=== PATIENT | female | born 1980 | race African-American/Black ===

== ENCOUNTER 2016-10-14 12:53 | Emergency (ER) | payer OTHER ==
[2016-10-14 13:14] VITALS: BP 128/83; PULSE 63; TEMP 97.7; BMI 29.7
--- NOTE | 2016-10-14 14:15 | PDOC ---
History of Present Illness - General Chief Complaint: Vaginal Bleeding Stated Complaint: VAGINAL BLEEDING, 5 WKS Time Seen by Provider: 10/14/16 13:21 - History of Present Illness Initial Comments: 10/14/16 14:14 CHIEF COMPLAINT: vag bldg HISTORY OF PRESENT ILLNESS: 36 yo 5 wk preg F with hx of cervical cancer s /p LEEP, tummy tuck, liposuction, and cerclage x2 presents to ED with intermittent cramping pain and vaginal bleeding "with clots" since yesterday. Patient states "I am miscarrying, this has happened before and it feels the same." Her OB is [facility]. No recent travel or sick contacts. PAST MEDICAL HISTORY: as per HPI FAMILY HISTORY: Denies SOCIAL HISTORY: Denies tobacco, alcohol, illicit drug use. SURGICAL HISTORY: Denies ALLERGIES: No known drug allergies REVIEW OF SYSTEMS General/Constitutional: Denies fever or chills. Denies weakness. HEENT: Denies change in vision. Denies ear pain or discharge. Denies sore throat. Cardiovascular: Denies chest pain or shortness of breath. Respiratory: Denies cough, wheezing, or hemoptysis. Gastrointestinal: Abdominal cramping "feels like contractions." Denies nausea, vomiting, diarrhea or constipation. Denies rectal bleeding. Genitourinary: Vaginal bleeding "with clots." D enies dysuria, frequency, or change in urination. Musculoskeletal: Denies joint or muscle swelling or pain. Denies neck or back pain. Skin and breasts: Denies rash or easy bruising. PHYSICAL EXAM General Appearance: Well-appearing, appropriately dressed. No apparent distress. HEENT: EOMI, PERRLA. No conjunctival pallor. No photophobia, scleral icterus. Respiratory/Chest: Lungs CTAB. Cardiovascular: RRR. S1, S2. Gastrointestinal/Abdominal: Normal bowel sounds. Abdomen soft, non-distended. No tenderness or rebound tenderness. No organomegaly, pulsatile mass, guarding , hernia, hepatomegaly, splenomegaly. Musculoskeletal/Extremities: Normal inspection. FROM of all extremities, normal capillary refill. No tenderness to extremities, pedal edema, swelling, erythema or deformity. Integumentary: Appropriate color, dry, warm. No cyanosis, erythema, jaundice or rash Neurologic: superintendent meters II-XII intact. Fully oriented, alert. Appropriate mood/affect. Motor strength 5/5. No appreciable EOM palsy, facial droop or sensory deficit. 10/14/16 14:53 Past History - Past Medical History Allergies/Adverse Reactions: Allergies Allergy/AdvReac Type Severity Reaction Status Date / Time No Known Allergies Allergy Verified 10/14/16 13:14 Home Medications: Ambulatory Orders NK [No Known Home Medication] 11/25/15 Thyroid Disease: No - Psycho/Social/Smoking Cessation Hx Anxiety: No Suicidal Ideation: No Smoking History: Never smoked Have you smoked in the past 12 months: No Information on smoking cessation initiated: No Hx Alcohol Use: No Drug/Substance Use Hx: No Substance Use Type: None *Physical Exam - Vital Signs Last Vital Signs Temp Pulse Resp BP Pulse Ox 97.7 F 63 18 128/83 100 10/14/16 13:10 10/14/16 13:10 10/14/16 13:10 10/14/16 13:10 10/14/16 13:10 ED Treatment Course - LABORATORY CBC & Chemistry Diagram: 10/14/16 14:29 - RADIOLOGY Radiology Studies Ordered: Category Date Time Status TRANSVAGINAL US PREG [US] Stat Ultrasound 10/14/16 14:08 Ordered Medical Decision Making - Medical Decision Making 10/14/16 14:57 36 yo 5 wk preg F with hx of cervical cancer s/p LEEP, tummy tuck, liposuction, and cerclage x2 presents to ED with intermittent cramping pain and vaginal bleeding "with clots" since yesterday. -CBC, beta hCG, T&S -TV US 10/14/16 14:57 *DC/Admit/Observation/Transfer Diagnosis at time of Disposition: Spontaneous - Discharge Dispostion Disposition: HOME Condition at time of disposition: Stable Admit: No - Referrals Referrals: Javi Pinto MD [Primary Care Provider] - Maykel Lockhart MD [Staff Physician] - - Patient Instructions Printed Discharge Instructions: DI for Miscarriage Additional Instructions: Please follow up with Dr. Lockhart by the end of this week. If you experience any uncontrollable bleeding (more than one soaked pad an hour), severe pain, uncontrollable vomiting, or any new or concerning symptoms, please return to the ER.
[2016-10-14 14:39] LABS: MCH 31.4 pg (25.7-33.7); MCHC 32.7 g/dl (32.0-36.0); MEAN PLT VOLUME 7.8 fl (7.5-11.1); PLATELET COUNT 191 K/MM3 (134-434); RDW 13.4 % (11.6-15.6); WHITE BLOOD COUNT 7.8 K/mm3 (4.0-10.0)
--- NOTE | 2016-10-14 15:21 | PDOC ---
[id number] 100 10/14/16 13:10 10/14/16 13:10 10/14/16 13:10 10/14/16 13:10 10/14/16 13:10 ED Treatment Course - LABORATORY CBC & Chemistry Diagram: 10/14/16 14:29 - ADDITIONAL ORDERS Additional order review: Laboratory Results 10/14/16 14:29 Beta HCG, Quant 359.8 10/14/16 14:29 RBC 4.22 MCV 96.0 MCHC 32.7 RDW 13.4 MPV 7.8 Medical Decision Making - Medical Decision Making 10/14/16 15:21 Pt seen by the Advanced Practice Provider under my direct supervision Ancillary studies reviewed I agree with plan as outlined by the Advanced Practice Provider LESLY Fong *DC/Admit/Observation/Transfer Diagnosis at time of Disposition: Miscarriage - Discharge Dispostion Disposition: HOME - Referrals Referrals: Maykel Lockhart MD [Staff Physician] - Javi Pinto MD [Primary Care Provider] - - Patient Instructions Printed Discharge Instructions: DI for Miscarriage Additional Instructions: Please follow up with Dr. Lockhart by the end of this week. If you experience any uncontrollable bleeding (more than one soaked pad an hour), severe pain, uncontrollable vomiting, or any new or concerning symptoms, please return to the ER.
== END 2016-10-14 16:27 | disposition home or self-care (01) ==
LOC: JER 12:53
DX: O03.9 Complete or unspecified spontaneous abortion without complication (principal); Z3A.01 Less than 8 weeks gestation of pregnancy
CPT/HCPCS: 36415; 76817-TC; 84702; 85027; 86850; 86900; 86901; 99283-25

== ENCOUNTER 2017-01-21 18:46 | Emergency (ER) | payer OTHER ==
[2017-01-21 18:56] VITALS: BP 124/77; PULSE 63; TEMP 98.2; BMI 30.7
[2017-01-21] MEDS ORDERED: IBUPROFEN 600 MG TABLET (FP) PO ONE (21:38)
--- NOTE | 2017-01-21 21:41 | PDOC ---
History of Present Illness - General Chief Complaint: Injury Stated Complaint: LEFT LEG INJURY Time Seen by Provider: 01/21/17 20:14 History Source: Patient Exam Limitations: No Limitations - History of Present Illness Initial Comments: 01/21/17 21:37 CC PAIN TO LEFT FOOT PAIN POST DROPPING 25LB WT ON SAME Occurred: reports: just prior to arrival Severity: reports: moderate Pain Location: reports: lower extremity (LEFT FOOT) Past History - Past Medical History Allergies/Adverse Reactions: Allergies Allergy/AdvReac Type Severity Reaction Status Date / Time No Known Allergies Allergy Verified 10/14/16 13:14 Home Medications: Ambulatory Orders NK [No Known Home Medication] 11/25/15 Thyroid Disease: No - Psycho/Social/Smoking Cessation Hx Anxiety: No Suicidal Ideation: No Smoking History: Never smoked Have you smoked in the past 12 months: No Number of Cigarettes Smoked Daily: 1 Information on smoking cessation initiated: No Hx Alcohol Use: No Drug/Substance Use Hx: No Substance Use Type: None Review of Systems - Review of Systems Constitutional: No: Chills, Fever Respiratory: Yes: Cough Musculoskeletal: Yes: Other (TEFOOT PAIN) Integumentary: Yes: Bruising *Physical Exam - Vital Signs Last Vital Signs Temp Pulse Resp BP Pulse Ox 98.2 F 63 18 124/77 99 01/21/17 18:55 01/21/17 18:55 01/21/17 18:55 01/21/17 18:55 01/21/17 18:55 - Physical Exam General Appearance: Yes: Appropriately Dressed, Apparent Distress Neck: positive: Supple. negative: Tender, Rigid Respiratory/Chest: positive: Lungs Clear Musculoskeletal: positive: Other (TENDER TO DISTAL 1/3 1ST-3RD MT) ED Treatment Course - RADIOLOGY Radiology Studies Ordered: Category Date Time Status FOOT-LEFT [RAD] Stat Radiology 01/21/17 20:29 Completed Medical Decision Making - Medical Decision Making 01/21/17 21:39 TENDER TO LEFT FOOT AT 1ST- 3RD MTS WITH STS *DC/Admit/Observation/Transfer Diagnosis at time of Disposition: Contusion of left foot Qualifiers: Encounter type: initial encounter Qualified Code(s): S90.32XA - Contusion of left foot, initial encounter - Discharge Dispostion Disposition: HOME Condition at time of disposition: Stable Admit: No - Referrals Referrals: Javi Pinto MD [Primary Care Provider] - - Patient Instructions Additional Instructions: REST, ELEVATE; ICE AREA; USE CRUTCHES X 2 DAYS, THEN WALK ON FOOT - Post Discharge Activity Work/School Note: Back to Work
== END 2017-01-21 21:55 | disposition home or self-care (01) ==
LOC: JERFT 18:46
DX: S90.32XA Contusion of left foot, initial encounter (principal); W20.8XXA Other cause of strike by thrown, projected or falling object, initial encounter; Y93.9 Activity, unspecified; Y92.9 Unspecified place or not applicable
CPT/HCPCS: 73630-TC-LT; 99281-25

== ENCOUNTER 2018-05-06 08:32 | Emergency (ER) | payer OTHER ==
[2018-05-06 08:57] VITALS: BMI 29.0
--- NOTE | 2018-05-06 09:14 | PDOC ---
History of Present Illness - General Chief Complaint: Pain Stated Complaint: ABD PAIN Time Seen by Provider: 05/06/18 09:13 History Source: Patient Exam Limitations: No Limitations - History of Present Illness Initial Comments: 05/06/18 09:37 38 year old female with PMH abdominal bloating presented to ED for abdominal bloating, nausea, vomiting x3 days. She stated that she has had intermittent episodes of abdominal bloating, and is seeing Dr. Stallworth for it. She stated she was prescribed a PPI combined with some other unknown drug, that helps her symptoms. She stated in November/December she had a colonoscopy, polyps were removed. She stated she has had daily bowel movements without difficulty. She denied fever, chills, diarrhea, constipation, hematemsis, blood in stool, chest pain, shortness of breath. Past surgical history: 2 c-sections, tummy tuck Past History - Past Medical History Allergies/Adverse Reactions: Allergies Allergy/AdvReac Type Severity Reaction Status Date / Time No Known Allergies Allergy Verified 05/06/18 08:52 Home Medications: Ambulatory Orders Ondansetron [Zofran Odt -] 4 mg SL TID PRN #12 od.tablet 05/06/18 COPD: No GI Disorders: Yes (bloating) Thyroid Disease: No - Surgical History Abdominal Surgery: Yes (2 cesarian sections) - Reproductive History (#): 7 Para: 2 Cervical CA: Yes (s/p LEEP x2, last one 2001) - Immunization History Immunization Up to Date: Yes - Suicide/Smoking/Psychosocial Hx Smoking History: Current every day smoker Have you smoked in the past 12 months: Yes Number of Cigarettes Smoked Daily: 1 Information on smoking cessation initiated: No Hx Alcohol Use: No Drug/Substance Use Hx: No Substance Use Type: Alcohol Review of Systems - Review of Systems Able to Perform ROS?: Yes Comments:: 05/06/18 09:39 General: denied fever, chills, night sweats, generalized weakness. HEENT: denied sore throat, rhinorrhea, ear pain. Heart: denied chest pain, palpitations, syncope, lower extremity swelling, diaphoresis. Respiratory: denied shortness of breath, cough, sputum production, hemoptysis. Abdomen: admitted to abdominal pain, nausea, vomiting, abdominal bloating. denied diarrhea, constipation, blood in stool. : denied dysuria, increased urinary frequency, hematuria, urinary incontinence , flank pain. Back: denied back pain. Musculoskeletal: denied joint pain, muscle pain, joint swelling. Neurological: denied headache, dizziness, numbness, tingling, weakness. Skin: denied rash, laceration, abrasion. *Physical Exam - Vital Signs Last Vital Signs Temp Pulse Resp BP Pulse Ox 97.9 F 60 18 128/62 100 05/06/18 08:51 05/06/18 08:51 05/06/18 08:51 05/06/18 08:51 05/06/18 08:51 - Physical Exam Comments: 05/06/18 09:40 Constitutional: Well-nourished, Well-developed, appearing stated age. HEENT: head is normocephalic, atraumatic. EOMI. PERRLA. Neck: supple. Full ROM. Heart: regular rhythm. no murmurs, rubs or gallops. Lungs: clear to auscultation bilaterally. no crackles, rhonchi or wheezing. no stridor. Abdomen: soft. tenderness to palpation of epigastrium. flat. normal bowel sounds. no rebound, guarding, masses. Extremities: Peripheral pulses intact. No lower extremity edema. Neurological: CN 2-12 grossly intact. Moves all four extremities. Psych: awake, alert, oriented x3. Follows commands. Answers questions appropriately. ED Treatment Course - LABORATORY CBC & Chemistry Diagram: 05/06/18 09:35 05/06/18 09:35 Medical Decision Making - Medical Decision Making 05/06/18 09:40 38 year old female with PMH abdominal bloating presented to ED for abdominal bloating, epigastric pain, nausea, vomiting x3 days. Initial Vital Signs Temp Pulse Resp BP Pulse Ox 97.9 F 60 18 128/62 100 05/06/18 08:51 05/06/18 08:51 05/06/18 08:51 05/06/18 08:51 05/06/18 08:51 Afebrile. No tachycardia. No tachypnea. No hypertension. No hypotension. No hypoxia on room air. Pending UA/UC, urine test for evaluation of UTI, . Pending CMP for evaluation of electrolyte concentration. Pending KUB, CT abdomen/pelvis for evaluation of SBO. Pepcid, Maalox ordered for epigastric pain. Zofran ordered for nausea. Bolus normal saline for hydration. 05/06/18 10:18 CBC WBC 5.3 K/mm3 (4.0-10.0) 05/06/18 09:35 RBC 4.51 M/mm3 (3.60-5.2) 05/06/18 09:35 Hgb 13.8 GM/dL (10.7-15.3) 05/06/18 09:35 Hct 43.0 % (32.4-45.2) 05/06/18 09:35 MCV 95.3 fl (80-96) 05/06/18 09:35 MCH 30.6 pg (25.7-33.7) 05/06/18 09:35 MCHC 32.1 g/dl (32.0-36.0) 05/06/18 09:35 RDW 13.5 % (11.6-15.6) 05/06/18 09:35 Plt Count 242 K/MM3 (134-434) 05/06/18 09:35 MPV 8.1 fl (7.5-11.1) 05/06/18 09:35 Absolute Neuts (auto) 2.8 K/mm3 (1.5-8.0) 05/06/18 09:35 Neutrophils % 53.2 % (42.8-82.8) 05/06/18 09:35 Lymphocytes % 36.2 % (8-40) 05/06/18 09:35 Monocytes % 8.1 % (3.8-10.2) 05/06/18 09:35 Eosinophils % 1.8 % (0-4.5) 05/06/18 09:35 Basophils % 0.7 % (0-2.0) 05/06/18 09:35 Nucleated RBC % 0 % (0-0) 05/06/18 09:35 No leukocytosis. No anemia Urine Test Results Urine Color Dkyellow 05/06/18 09:35 Urine Appearance Slcloudy 05/06/18 09:35 Urine pH 5.0 (5.0-8.0) 05/06/18 09:35 Ur Specific [place] 1.026 (1.010-1.035) 05/06/18 09:35 Urine Protein 2+ (NEGATIVE) H 05/06/18 09:35 Urine Glucose (UA) Negative (NEGATIVE) 05/06/18 09:35 Urine Ketones Negative (NEGATIVE) 05/06/18 09:35 Urine Blood 3+ (NEGATIVE) H 05/06/18 09:35 Urine Nitrite Negative (NEGATIVE) 05/06/18 09:35 Urine Bilirubin Negative (<2.0 mg/dL) 05/06/18 09:35 Ur Leukocyte Esterase Trace (NEGATIVE) 05/06/18 09:35 Blood in urine. Pt currently has her menstrual period. Urine test negative. Trace LE with 12 WBC, but 3+ blood; pt asymptomatic, positive epithelial cells, testing negative, will not treat at this time. 05/06/18 11:57 CT abdomen/pelvis report: small fat containing umbilical hernia noted. mild curvilinear subcutaneous soft tissue stranding along the anterior abdominal wall consistent with postsurgical change. no AAA. Probable partial visualization of the appendix which demonstrates no gross abnormality. no obvious CT signs of acute appendicitis seen. Possible concentric wall thickening along the descending and simoid colon described on a CT study of cannot be definitely appreciated on the current noncontrast exam. 05/06/18 12:41 CMP Sodium 139 mmol/L (136-145) 05/06/18 09:35 Potassium 4.2 mmol/L (3.5-5.1) 05/06/18 09:35 Chloride 107 mmol/L (98-107) 05/06/18 09:35 Carbon Dioxide 26 mmol/L (21-32) 05/06/18 09:35 Anion Gap 6 MMOL/L (8-16) L 05/06/18 09:35 BUN 9 mg/dL (7-18) 05/06/18 09:35 Creatinine 0.9 mg/dL (0.55-1.3) 05/06/18 09:35 Creat Clearance w eGFR > 60 (>60) 05/06/18 09:35 Random Glucose 87 mg/dL (74-106) 05/06/18 09:35 Calcium 9.3 mg/dL (8.5-10.1) 05/06/18 09:35 Total Bilirubin 0.4 mg/dL (0.2-1) 05/06/18 09:35 AST 26 U/L (15-37) 05/06/18 09:35 ALT 30 U/L (13-61) 05/06/18 09:35 Alkaline Phosphatase 73 U/L (45-117) 05/06/18 09:35 Total Protein 7.5 g/dl (6.4-8.2) 05/06/18 09:35 Albumin 4.1 g/dl (3.4-5.0) 05/06/18 09:35 Lipase 107 U/L (73-393) 05/06/18 09:35 No electrolyte abnormality. No MARQUISE. No LFT abnormality. Normal lipase. Pt reassessed, stated symptoms have completely resolved. Stated she would like to go home. Abdominal examination: soft. flat. no tenderness to palpation. no masses. no rebound. no guarding. Pt stated the medication that she was prescribed before that helped with her nausea is Reglan. Zofran prescription sent to pts pharmacy. Pt informed to follow up with GI, she stated she understood and would follow up. *DC/Admit/Observation/Transfer Diagnosis at time of Disposition: Abdominal pain - Discharge Dispostion Disposition: HOME Condition at time of disposition: Improved Decision to Admit order: No - Prescriptions Prescriptions: Ondansetron [Zofran Odt -] 4 mg SL TID PRN #12 od.tablet PRN Reason: Nausea - Referrals Referrals: Asa Mclean MD [Primary Care Provider] - - Patient Instructions Additional Instructions: You were seen today for abdominal pain. Your blood work was normal. Your cat- scan was normal. Your X-ray was normal. I have sent a prescription for Zofran ( for nausea) to your pharmacy, take as advised on label as needed for nausea/ vomiting. Return to the Emergency Department for increasing pain, vomiting, vomiting blood, blood in stool, fever, chills, lightheadedness like you may pass out, chest pain, shortness of breath or any other new, worsening or concerning symptoms. Follow up with your special education paraprofessional within 5 days, your care is not complete until you follow up. Follow up with your primary care doctor within 5 days, your care is not complete until you follow up. I have provided you with a copy of your CatScan results. Take these results to your doctors. - Post Discharge Activity
[2018-05-06] MEDS ORDERED: FAMOTIDINE 20 MG/50 ML IVPB 20 MG/50 ML MG IVPB ONE ×2 (09:42→09:58)
[2018-05-06] MEDS ORDERED: MAG HYDROX/AL HYDROX/SIMETH -MYLANTA- ORAL SUSPENSION PO ONE (09:42)
[2018-05-06] MEDS ORDERED: ONDANSETRON 4 MG/2 ML VIAL IVPUSH ONE (09:45)
[2018-05-06] MEDS ORDERED: SODIUM CHLORIDE 1,000 ML IV STA (09:46)
[2018-05-06 09:50] LABS: BASO % 0.7 % (0-2.0); EOS % 1.8 % (0-4.5); HEMOGLOBIN 13.8 GM/dL (10.7-15.3); LYMPH % 36.2 % (8-40); MCH 30.6 pg (25.7-33.7); MCHC 32.1 g/dl (32.0-36.0); MEAN CELL VOLUME 95.3 fl (80-96); MEAN PLT VOLUME 8.1 fl (7.5-11.1); MONO % 8.1 % (3.8-10.2); NEUT % 53.2 % (42.8-82.8); PLATELET COUNT 242 K/MM3 (134-434); RBC 4.51 M/mm3 (3.60-5.2); RDW 13.5 % (11.6-15.6); WHITE BLOOD COUNT 5.3 K/mm3 (4.0-10.0)
[2018-05-06] MEDS ORDERED: ONDANSETRON 4 MG/2 ML VIAL ONE (09:58)
[2018-05-06] MEDS ORDERED: MAG HYDROX/AL HYDROX/SIMETH 30 ML UNIT-DOSE CUP ONE (09:58)
[2018-05-06 10:12] LABS: HCG,QUALITATIVE URINE Negative; INR 0.99 (0.83-1.09); PROTHROMBIN TIME (PATIENT) 11.7 SEC (9.7-13.0); URINE APPEARANCE SLCLOUDY; URINE BILIRUBIN NEGATIVE (<2.0 mg/dL); URINE COLOR DKYELLOW; URINE GLUCOSE (UA) NEGATIVE (NEGATIVE); URINE KETONE NEGATIVE (NEGATIVE); URINE LEUK ESTERASE TRACE (NEGATIVE); URINE NITRITE NEGATIVE (NEGATIVE); URINE PROTEIN 2+ (NEGATIVE); URINE UROBILINOGEN NEGATIVE mg/dL (0.2-1.0)
--- NOTE | 2018-05-06 10:17 | PDOC ---
Attending Attestation - Resident Resident Name: Sasha Gastelum - ED Attending Attestation I have performed the following: I have examined & evaluated the patient, The case was reviewed & discussed with the resident, I agree w/resident's findings & plan, Exceptions are as noted - HPI HPI: 05/06/18 10:51 This is a 38 year old female with significant past medical history of abdominal bloating, who presents to the emergency department today complaining of abdominal bloating, nausea, and vomiting for three days. Patient notes her last bowel movement was yesterday, and was normal, nonbloody. Patient has vomited 4 times in the past 3 days, which originally was clear/yellow in color, but this morning was brown like the color of her tea and foamy. Patient notes constantly belching as well. Patient also reports feeling gassy, and her flatulence smells unusual. Patient reports traveling to [place] last month, no other travel. Currently on her period. Patient notes she has been experiencing intermittent episodes of abdominal bloating since September, and is currently being treated by Dr. Stallworth. Patient notes she was given Omeprazole and another medication that she cannot recall, which has helped alleviate her symptoms. She states her symptoms improved in the past after she had polyps removed but now her bloating is back. Denies fever, chills. Denies chest pain, SOB. Denies diarrhea, constipation. Denies goldstein, focal weakness/numbness PCP: none reported Surgical hx: Colonoscopy in November (polyp removal), Yasemin Cabrera , 2 C-Sections - Physicial Exam PE: 05/06/18 10:55 GENERAL: Awake, alert, and fully oriented, in no acute distress EYES: PERRLA, EOMI, sclera anicteric, conjunctiva clear ENT: Oropharynx clear without exudates. Moist mucosa NECK: Normal ROM, supple, no lymphadenopathy, JVD, or masses LUNGS: Breath sounds equal, clear to auscultation bilaterally. No wheezes, and no crackles HEART: Regular rate and rhythm, normal S1 and S2, no murmurs, rubs or gallops ABDOMEN: +Tenderness to deep palpation in the epigastric area. No distention. Normoactive bowel sounds. No guarding, no rebound. No masses EXTREMITIES: Normal range of motion, no edema. No erythema, or tenderness BACK: No CVA tenderness. No midline spinal tenderness in cervical/thoracic/ lumbar region NEUROLOGICAL: Normal speech, cranial nerves intact,5/5 strength in all 4 extremities, normal sensation to light touch in all 4 extremities, normal gait SKIN: Warm, Dry, normal turgor, no rashes or lesions noted. - Medical Decision Making 05/06/18 10:15 38yo F hx colonic polyps, x2, abdominoplasty presents to the ED with nausea, NB emesis x4, epigastric pain and abd bloating. Vitals wnl. Exam with epigastric tenderness with deep palpation. No rebound or guarding. DDx includes but not limited to SBO vs ileus vs pancreatitis vs gastritis vs enteritis. Plan: -labs -UA -UPT -AXR -pain control, antiemetics -consider CTAP -reassess
[2018-05-06 10:42] LABS: EPI CELLS RARE /HPF (FEW); URINE BACTERIA RARE /hpf (NONE SEEN); URINE MUCUS MANY
[2018-05-06 11:40] LABS: CO2 26 mmol/L (21-32); CREATININE 0.9 mg/dL (0.55-1.3)
[2018-05-06 11:41] LABS: ALBUMIN 4.1 g/dl (3.4-5.0)
[2018-05-06 12:09] LABS: ALK PHOS 73 U/L (45-117); ANION GAP 6 MMOL/L (8-16); BILIRUBIN,TOTAL 0.4 mg/dL (0.2-1); BLOOD UREA NITROGEN 9 mg/dL (7-18); CALCIUM 9.3 mg/dL (8.5-10.1); CHLORIDE 107 mmol/L (98-107); GLUCOSE,RANDOM 87 mg/dL (74-106); LIPASE 107 U/L (73-393); POTASSIUM 4.2 mmol/L (3.5-5.1); SGOT/AST 26 U/L (15-37); SODIUM 139 mmol/L (136-145); TOT PROT 7.5 g/dl (6.4-8.2)
[2018-05-06 12:30] LABS: SGPT/ALT 30 U/L (13-61)
[2018-05-06 13:03] VITALS: BP 125/63; PULSE 69; TEMP 98.3
== END 2018-05-06 13:00 | disposition home or self-care (01) ==
LOC: JER 08:32
PROC: 3E033GC Introduction of Other Therapeutic Substance into Peripheral Vein, Percutaneous Approach (ICD-10-PCS; principal; 2018-05-06)
PROC: 3E033GC Introduction of Other Therapeutic Substance into Peripheral Vein, Percutaneous Approach (ICD-10-PCS; 2018-05-06)
DX: R10.9 Unspecified abdominal pain (principal)
CPT/HCPCS: 36415; 74018-TC-FY; 74176-TC; 80053; 81003; 81015; 83690; 84703; 85025; 85610; 85730; 86850; 86900; 86901; 87086; 99283-25; J7030

== ENCOUNTER 2019-06-16 21:26 | Emergency (ER) | payer OTHER ==
[2019-06-16 21:31] VITALS: BP 143/83; PULSE 76; TEMP 97.6; BMI 31.5
[2019-06-16 23:19] LABS: BASO % 1.3 % (0-2.0); EOS % 1.4 % (0-4.5); HEMATOCRIT 42.7 % (32.4-45.2); HEMOGLOBIN 14.1 GM/dL (10.7-15.3); LYMPH % 38.3 % (8-40); MCH 31.6 pg (25.7-33.7); MEAN CELL VOLUME 95.6 fl (80-96); MEAN PLT VOLUME 7.5 fl (7.5-11.1); MONO % 8.2 % (3.8-10.2); NEUT % 50.8 % (42.8-82.8); PLATELET COUNT 237 K/MM3 (134-434); RBC 4.47 M/mm3 (3.60-5.2); WHITE BLOOD COUNT 7.1 K/mm3 (4.0-10.0)
--- NOTE | 2019-06-16 23:30 | PDOC ---
Documentation entered by Teri Montgomery SCRIBE, acting as scribe for Romelia Marvin MD. Romelia Marvin MD: This documentation has been prepared by the Valentina babb Nirvannie, SCRIBE, under my direction and personally reviewed by me in its entirety. I confirm that the documentation accurately reflects all work, treatment, procedures, and medical decision making performed by me. History of Present Illness - General Chief Complaint: Vaginal Bleeding Stated Complaint: VAGINAL BLEEDING Time Seen by Provider: 06/16/19 22:11 History Source: Patient Exam Limitations: No Limitations - History of Present Illness Initial Comments: 06/16/19 23:40 [id number] 5 weeks F A4 with no significant past medical history, who presents to the ED with 2 days of vaginal spotting, pelvic cramping, and nausea. As per patient, she had a positive at home urine test 06/07 and is pending her appointment with [facility] [employer] Dr. Lockhart tomorrow. Patient notes while in the ED at [facility] she saw increased bleeding she describes as dark in coloration. Patient notes a history of one miscarriage at 20 weeks approximately 11 years ago. Denies any history of ectopic pregnancies. denies intercourse or trauma or falls. Denies fever, chills, chest pain, SOB, palpitation, syncope. dizziness, weakness, N, V, D, bladder and bowel problems, leg swelling, taking folic acid prenatals. Allergies: None Past Medical History: None reported. Social history: Lives with family. No tobacco, or drug use. Social EtOH. Surgical history: x2. Unknown knee surgery. Meds: as documented in EMR PMD: Dr. Mclean LABORER/KEY MAN: Dr Maykel Lockhart LMP: 05/1006/17/19 00:26 06/17/19 00:54 Past History - Past Medical History Allergies/Adverse Reactions: Allergies Allergy/AdvReac Type Severity Reaction Status Date / Time No Known Allergies Allergy Verified 06/16/19 21:31 Home Medications: Ambulatory Orders Ondansetron [Zofran Odt -] 4 mg SL TID PRN #12 od.tablet 05/06/18 COPD: No GI Disorders: Yes (bloating) Thyroid Disease: No - Surgical History Abdominal Surgery: Yes (2 cesarian sections) - Reproductive History (#): 7 Para: 2 Cervical CA: Yes (s/p LEEP x2, last one 2001) - Immunization History Immunization Up to Date: Yes - Psycho Social/Smoking Cessation Hx Smoking History: Never smoked Have you smoked in the past 12 months: No Number of Cigarettes Smoked Daily: 1 Information on smoking cessation initiated: No Hx Alcohol Use: No Drug/Substance Use Hx: No Substance Use Type: Alcohol Review of Systems - Review of Systems Able to Perform ROS?: Yes Comments:: 06/16/19 23:41 Constitutional: no fevers or chills. HEENT: no headache or dizziness. No congestion. No visual/hearing disturbances. CVS: no cp or syncope. Resp: no sob. No cough. Gastrointestinal: no abdominal pain, or vomiting. +Nausea. Genitourinary: +Vaginal bleeding. +Pelvic cramping. no urinary sx, hematuria. MUSCULOSKELETAL: No joint pain and swelling. No neck or back pain. SKIN: no redness or skin changes, no discharge, no rash. No wounds. Hematologic: no easy bruising/bleeding. NEUROLOGIC: No headache, dizziness, LOC or altered mental status. No weakness, numbness or tingling. Psych: no anxiety or depression Allergic/Immunologic: no allergies All other systems reviewed and negative, or as documented in HPI. All Other Systems: Reviewed and Negative *Physical Exam - Vital Signs Last Vital Signs Temp Pulse Resp BP Pulse Ox 97.6 F 76 17 143/83 100 06/16/19 21:29 06/16/19 21:29 06/16/19 21:29 06/16/19 21:29 06/16/19 21:29 - Physical Exam 06/16/19 23:42 General: Well appearing, awake and alert, NAD. HEENT: NCAT, PERRL, EOMI, clear conjunctiva, anicteric, moist mucous membranes , clear oropharynx, no oral lesions.. Neck: neck supple, FROM Resp: CTAB, normal and even respirations, no respiratory distress CVS: RRR, no murmurs, 2+ peripheral pulses throughout, no peripheral edema Abdomen: soft, NTND, no rebound or guarding. No CVAT. Back: nontender, normal inspection and ROM Female : normal external genitalia, no lesions, +scant blood and brown discharge in vaginal vault, no CMT, no adnexal tenderness. Smooth and pink cervix, closed. MSK: no edema, JACKSON x4, ROM intact. No clubbing or cyanosis. normal bulk and tone. Extremities: no calf tenderness Neuro: alert, oriented appropriately; no focal neurologic deficits Skin: warm and well perfused, cap refill <2 sec, normal color ED Treatment Course - LABORATORY CBC & Chemistry Diagram: 06/16/19 11:00 06/16/19 11:00 - ADDITIONAL ORDERS Additional order review: Laboratory Results 06/16/19 11:00 WBC 7.1 RBC 4.47 Hgb 14.1 Hct 42.7 MCV 95.6 MCH 31.6 MCHC 33.0 RDW 13.0 Plt Count 237 MPV 7.5 Absolute Neuts (auto) 3.6 Neutrophils % 50.8 Lymphocytes % 38.3 Monocytes % 8.2 Eosinophils % 1.4 Basophils % 1.3 Nucleated RBC % 0 06/16/19 11:00 RBC 4.47 MCV 95.6 MCHC 33.0 RDW 13.0 MPV 7.5 Neutrophils % 50.8 Lymphocytes % 38.3 Monocytes % 8.2 Eosinophils % 1.4 Basophils % 1.3 - RADIOLOGY Radiology Studies Ordered: Category Date Time Status TRANSVAGINAL US PREG [US] Stat Ultrasound 06/16/19 22:11 Taken Medical Decision Making - Medical Decision Making 06/16/19 23:25 Vital Signs Temp Pulse Resp BP Pulse Ox 97.6 F 76 17 143/83 100 06/16/19 21:29 06/16/19 21:29 06/16/19 21:29 06/16/19 21:29 06/16/19 21:29 DDx female VB: ectopic , miscarriage, demise, subchorionic hematoma, retained POC, normal first trimester bleeding, UTI in in . Fibroid uterus, vaginitis, infection, electrolyte/metabolic derangements, anemia. Rh positive, no rhogam indicated VS wnl, normotensive, no tachy or hypoxia/respiratory distress. abdomen benign on reeval and no peritoneal findings, no VB here, controlled Beta hcg 8770 TVUS Single IUP in the gestational sac seen with yolk sac, no heart rate or pole at this time yet. Dates are correlated to 5 weeks 3 days. Small adjacent subchorionic hemorrhage. UA neg for infection, small blood likely from VB. threatened instructions, pelvic rest, reduce stressors, no heavy lifting could be early IUP vs threatened , also subchorionic hematoma noted. 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 bleeding precautions; return to ED if persistent and heavy vaginal bleeding, persistent pelvic pain not relieved by your prescribed medications, dizziness, shortness of breath, new and persistent fevers, other foul smelling discolored vaginal discharge, or for any other concerns. 06/16/19 23:26 06/17/19 00:34 06/17/19 00:50 Discharge - Discharge Information Problems reviewed: Yes Clinical Impression/Diagnosis: Vaginal bleeding during , Threatened in first trimester, Subchorionic hematoma in first trimester Condition: Good Disposition: HOME - Admission No - Follow up/Referral Referrals: Asa Mclean MD [Primary Care Provider] - Maykel Lockhart MD [Staff Physician] - - Patient Discharge Instructions Patient Printed Discharge Instructions: DI for Threatened , DI for Vaginal Bleeding During Additional Instructions: 1) Please follow-up with your LABORER/KEY MAN in the next 1-2 days. Please call tomorrow for for any urgent issues. Dr Lockhart is your LABORER/KEY MAN - 2) You were given a copy of the tests performed today. Please bring the results with you and review them with your primary care doctor. Your laboratory / imaging results were normal, ultrasound showed IUP at 5 weeks 3 days small bleed seen, no heart beat, this is either early or threatened / miscarriage. your beta hcg level is 8770, this needs to be trended. 3) If you have any worsening of symptoms or any other concerns please return to the ED immediately. Return if worsening symptoms including fevers, headache, vomiting, visual or hearing disturbances, abdominal pain, chest pain, shortness of breath, syncope, dehydration, inability to take things by mouth/vomiting, altered mental status, or worsening concerning symptoms. please rest, avoid stressors, avoid heavy lifting. Stay well hydrated and rest adequately. Make an appointment. If you cannot follow-up with your primary care doctor please return to the ED - Post Discharge Activity Work/Back to School Note: Back to Work
[2019-06-16 23:48] LABS: ALBUMIN 4.1 g/dl (3.4-5.0); BILIRUBIN,TOTAL 0.3 mg/dL (0.2-1); BLOOD UREA NITROGEN 13.3 mg/dL (7-18); CALCIUM 9.1 mg/dL (8.5-10.1); CREATININE 0.7 mg/dL (0.55-1.3); POTASSIUM 4.1 mmol/L (3.5-5.1); TOT PROT 7.3 g/dl (6.4-8.2)
[2019-06-17 00:42] LABS: EPI CELLS 3.8 /HPF (0-5/HPF); HYALINE CASTS 3 /lpf (0-8); URINE APPEARANCE CLEAR; URINE BACTERIA 16.5 /hpf (NEGATIVE); URINE BILIRUBIN NEGATIVE (NEGATIVE); URINE COLOR YELLOW; URINE GLUCOSE (UA) NEGATIVE (NEGATIVE); URINE KETONE NEGATIVE (NEGATIVE); URINE LEUK ESTERASE NEGATIVE (NEGATIVE); URINE NITRITE NEGATIVE (NEGATIVE); URINE PROTEIN NEGATIVE (NEGATIVE); URINE RBC 0 /hpf (0-4); URINE UROBILINOGEN 0.2 mg/dL (0.2-1.0); URINE WBC 1 /hpf (0-5)
== END 2019-06-17 00:55 | disposition home or self-care (01) ==
LOC: JER 21:26
DX: O26.891 Other specified pregnancy related conditions, first trimester (principal); O20.0 Threatened abortion; Z3A.01 Less than 8 weeks gestation of pregnancy; N93.9 Abnormal uterine and vaginal bleeding, unspecified
CPT/HCPCS: 36415; 76817-TC; 80053; 81003; 84702; 85025; 86850; 86900; 86901; 87086; 99282-25

== ENCOUNTER 2019-08-12 10:09 | Emergency (ER) | payer OTHER ==
[2019-08-12 10:17] VITALS: BP 133/64; PULSE 82; BMI 30.1
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
[2019-08-12] MEDS ORDERED: ACETAMINOPHEN 325 MG TABLET (FP) PO ONE (11:03)
[2019-08-12] MEDS ORDERED: ACETAMINOPHEN 325 MG TABLET (FP) ONE (11:18)
== END 2019-08-12 12:04 | disposition home or self-care (01) ==
LOC: JERFT 10:09
DX: O99.89 Other specified diseases and conditions complicating pregnancy, childbirth and the puerperium (principal); S00.11XA Contusion of right eyelid and periocular area, initial encounter; Y04.2XXA Assault by strike against or bumped into by another person, initial encounter; Y93.89 Activity, other specified; Y92.198 Other place in other specified residential institution as the place of occurrence of the external cause; Y99.0 Civilian activity done for income or pay; Z3A.13 13 weeks gestation of pregnancy
CPT/HCPCS: 76815; 99284-25

== ENCOUNTER 2020-10-10 14:59 | Inpatient (IN) | payer OTHER ==
[2020-10-10 17:14] LABS: BASO % 0.2 % (0-2.0); EOS % 4.5 % (0-4.5); HEMATOCRIT 41.2 % (32.4-45.2); HEMOGLOBIN 13.5 GM/dL (10.7-15.3); LYMPH % 36.1 % (8-40); MCH 30.7 pg (25.7-33.7); MCHC 32.7 g/dl (32.0-36.0); MEAN CELL VOLUME 93.9 fl (80-96); MEAN PLT VOLUME 8.3 fl (7.5-11.1); MONO % 8.7 % (3.8-10.2); NEUT % 50.5 % (42.8-82.8); PLATELET COUNT 248 K/MM3 (134-434); RBC 4.39 M/mm3 (3.60-5.2); RDW 13.5 % (11.6-15.6)
[2020-10-10 17:21] LABS: INR 1.08 (0.83-1.09)
[2020-10-10] MEDS ORDERED: ONDANSETRON *ODT* 4 MG TABLET SL PRN (17:23)
[2020-10-10] MEDS ORDERED: ACETAMINOPHEN 325 MG TABLET (FP) PO PRN (17:23)
[2020-10-10] MEDS ORDERED: diphenhydrAMINE HCL 25 MG CAPSULE (FP) PO PRN (17:24)
[2020-10-10 17:43] LABS: ALBUMIN 3.8 g/dl (3.4-5.0); BLOOD UREA NITROGEN 12.2 mg/dL (7-18); CALCIUM 9.2 mg/dL (8.5-10.1)
[2020-10-10 17:47] LABS: CREATININE 0.9 mg/dL (0.55-1.3)
[2020-10-10 17:48] LABS: BILIRUBIN,TOTAL 0.5 mg/dL (0.2-1)
[2020-10-10 17:49] LABS: TOT PROT 6.8 g/dl (6.4-8.2)
[2020-10-10] MEDS: HEPARIN NA (PORCINE) 5,000 UNITS/ML 1ML VIAL SQ SCH (22:39)
[2020-10-11] MEDS: HEPARIN NA (PORCINE) 5,000 UNITS/ML 1ML VIAL SQ SCH ×3 (01:00→21:16)
[2020-10-11 05:43] VITALS: BMI 33.6
[2020-10-11] MEDS: CLOTRIMAZOLE 1% CREAM 15 GM TUBE TP SCH ×3 (05:47→21:16)
[2020-10-11] MEDS ORDERED: ALPRAZolam 1 MG TABLET PO PRN (11:26)
[2020-10-11] MEDS ORDERED: ALPRAZolam 0.25 MG TABLET PO PRN (11:31)
[2020-10-11] MEDS ORDERED: VANCOMYCIN 1 GM in D5W (PRE-DOCKED) 1,000 MG/250 ML IVPB ONE (11:45)
[2020-10-11] MEDS: VANCOMYCIN 1 GRAM (PRE-DOCKED) 1,000 MG/250 ML BAG IVPB SCH (21:39)
[2020-10-12] MEDS ORDERED: MELATONIN 5 MG TABLETS PO PRN (00:22)
[2020-10-12] MEDS: HEPARIN NA (PORCINE) 5,000 UNITS/ML 1ML VIAL SQ SCH (10:09)
[2020-10-12] MEDS: VANCOMYCIN 1 GRAM (PRE-DOCKED) 1,000 MG/250 ML BAG IVPB SCH (10:09)
[2020-10-12] MEDS: CLOTRIMAZOLE 1% CREAM 15 GM TUBE TP SCH (10:09)
[2020-10-12 15:04] VITALS: BP 118/62; PULSE 77; TEMP 98
== END 2020-10-12 17:10 | disposition home or self-care (01) | DRG 721 ==
LOC: JER 14:59 → JERBED 15:49 → J6S 21:38
PROVIDERS: ADMIT Family Medicine; ATTEND Family Medicine
DX: T81.41XA Infection following a procedure, superficial incisional surgical site, initial encounter (principal); N61.0 Mastitis without abscess; Y83.9 Surgical procedure, unspecified as the cause of abnormal reaction of the patient, or of later complication, without mention of misadventure at the time of the procedure
CPT/HCPCS: 36415; 76642-TC-50; 80053; 83605; 84702; 85025; 85610; 87040; 93005; 93010; 99285-25; C9803; J1644; U0003; U0005

== ENCOUNTER 2024-03-24 18:33 | Observation (INO) | payer OTHER ==
[2024-03-24 18:44] VITALS: BMI 30.9
[2024-03-24] MEDS ORDERED: FAMOTIDINE 20 MG/50 ML IVPB 20 MG/50 ML MG IVPB ONE (20:37)
[2024-03-24] MEDS ORDERED: ACETAMINOPHEN INJECTION 100 ML ONE (20:37)
[2024-03-24] MEDS: ACETAMINOPHEN 1000 MG/100 ML BAG IVPB ONE (20:59)
[2024-03-24] MEDS: SODIUM CHLORIDE 0.9% 500 ML INFUS.BAG IV ONE (20:59)
[2024-03-24 21:01] LABS: BASO % 1.2 % (0-2.0); EOS % 1.1 % (0-4.5); HEMATOCRIT 40.6 % (32.4-45.2); HEMOGLOBIN 13.7 GM/dL (10.7-15.3); LYMPH % 29.9 % (8-40); MCH 31.8 pg (25.7-33.7); MCHC 33.8 g/dl (32.0-36.0); MEAN CELL VOLUME 94.1 fl (80-96); MEAN PLT VOLUME 7.6 fl (7.5-11.1); MONO % 8.7 % (3.8-10.2); NEUT % 59.1 % (42.8-82.8); PLATELET COUNT 255 10^3/uL (134-434); RBC 4.31 M/mm3 (3.60-5.2); RDW 13.2 % (11.6-15.6); WHITE BLOOD COUNT 7.4 K/mm3 (4.0-10.0)
[2024-03-24 21:20] LABS: POTASSIUM 3.8 mmol/L (3.5-5.1)
[2024-03-24 21:21] LABS: INR 1.03 (0.83-1.09); PROTHROMBIN TIME (PATIENT) 11.6 SEC (9.7-13.0)
[2024-03-24 21:22] LABS: CALCIUM 8.8 mg/dL (8.5-10.1)
[2024-03-24 21:23] LABS: ACTIVATED PTT 31.4 SECONDS (25.2-36.5); ALBUMIN 3.8 g/dl (3.4-5.0); BLOOD UREA NITROGEN 11.8 mg/dL (7-18); MAGNESIUM 2.2 mg/dL (1.8-2.4)
[2024-03-24 21:27] LABS: BILIRUBIN,TOTAL 0.5 mg/dL (0.2-1)
[2024-03-24] MEDS: FAMOTIDINE 20 MG/50 ML IVPB 20 MG/50 ML MG IVPB ONE (21:30)
[2024-03-24] MEDS ORDERED: ASPIRIN 81 MG CHEWABLE TABLETS ONE (23:07)
[2024-03-24] MEDS: ASPIRIN 81 MG CHEWABLE TABLETS PO ONE (23:19)
[2024-03-25] MEDS ORDERED: SIMETHICONE 80 MG TAB.CHEW (FP) PO PRN (07:25)
[2024-03-25 09:01] LABS: BASO % 0.9 % (0-2.0); EOS % 1.3 % (0-4.5); HEMATOCRIT 37.5 % (32.4-45.2); HEMOGLOBIN 12.5 GM/dL (10.7-15.3); LYMPH % 36.4 % (8-40); MCH 31.8 pg (25.7-33.7); MCHC 33.4 g/dl (32.0-36.0); MEAN CELL VOLUME 95.4 fl (80-96); NEUT % 53.4 % (42.8-82.8); PLATELET COUNT 242 10^3/uL (134-434); RBC 3.93 M/mm3 (3.60-5.2); RDW 13.2 % (11.6-15.6); WHITE BLOOD COUNT 5.7 K/mm3 (4.0-10.0)
[2024-03-25] MEDS: PANTOPRAZOLE 40 MG TABLET PO SCH ×2 (10:22→21:14)
[2024-03-25] MEDS: ASPIRIN 81 MG CHEWABLE TABLETS PO SCH (10:22)
[2024-03-25 13:13] LABS: BLOOD UREA NITROGEN 10.1 mg/dL (7-18); CALCIUM 8.4 mg/dL (8.5-10.1); MAGNESIUM 2.1 mg/dL (1.8-2.4)
[2024-03-25 19:03] LABS: AMYLASE 48 U/L (25-115)
[2024-03-25] MEDS: SIMETHICONE 80 MG TAB.CHEW (FP) PO SCH (21:13)
[2024-03-26 13:39] VITALS: BP 125/83; PULSE 57; RESP 17; TEMP 97.9
== END 2024-03-26 13:30 | disposition home or self-care (01) ==
LOC: JER 18:33 → JERBED 22:17 → J4S 03-25 00:34
PROVIDERS: ADMIT Internal Medicine; ATTEND Family Medicine
PROC: 3E0337Z Introduction of Electrolytic and Water Balance Substance into Peripheral Vein, Percutaneous Approach (ICD-10-PCS; principal; 2024-03-24)
PROC: 3E033NZ Introduction of Analgesics, Hypnotics, Sedatives into Peripheral Vein, Percutaneous Approach (ICD-10-PCS; 2024-03-24)
PROC: 3E033GC Introduction of Other Therapeutic Substance into Peripheral Vein, Percutaneous Approach (ICD-10-PCS; 2024-03-24)
DX: R07.9 Chest pain, unspecified (principal); K21.9 Gastro-esophageal reflux disease without esophagitis; Z85.41 Personal history of malignant neoplasm of cervix uteri; Z88.2 Allergy status to sulfonamides; Z88.1 Allergy status to other antibiotic agents
CPT/HCPCS: 36415; 71045-TC-FY; 76705-TC; 80048; 80053; 80061; 82150; 83690; 83735; 84443; 84484; 85025; 85610; 85730; 93005; 93010; 93017; 93018; 93306-TC; 96365; 96375; 99285-25; G0378; J0131